=== PATIENT | male | born 1945 | race Caucasian/White ===

== ENCOUNTER 2017-03-27 14:58 | Outpatient (CLI) | payer MEDICARE ==
[2017-03-27 15:35] LABS: #Basophils 0.1 thou/uL (0.0-0.2); #Eosinphils 0.1 thou/uL (0.0-0.7); #Monocytes 0.4 thou/uL (0.11-0.59); %Basophils 0.7 % (0.0-1.0); %Eosinophils 0.6 % (0.0-10.0); %Lymphocytes 11.8 % (21.0-51.0); %Monocytes 4.4 % (0.0-10.0); %Neutrophils 82.6 % (42.0-75.0); Hemoglobin 13.3 g/dL (14.0-18.0); Mean Corpuscular HGB CONC 33.4 g/dL (32.0-36.0); Mean Corpuscular Hemoglobin 30.6 pg (27.0-31.0); Mean Corpuscular Volume 91.4 fl (80.0-94.0); Mean Platelet Volume 7.4 fL (7.4-10.4); Platelet Count 249 thou/uL (130-400); RBC Distribution Width 13.1 % (11.5-14.5); Red Blood Cell (RBC) Count 4.34 mill/uL (4.70-6.10); White Blood Cell (WBC) Count 8.5 thou/uL (4.8-10.8)
[2017-03-27 16:08] LABS: ALT (SGPT) 7 U/L (8-55); AST (SGOT) 25 U/L (5-34); Albumin 3.8 g/dL (3.4-4.8); Alkaline Phosphatase 73 U/L (40-150); Anion Gap 16 mmol/L (10-20); BUN (Urea Nitrogen) 16 mg/dL (8.4-25.7); Bilirubin, Total 0.3 mg/dL (0.2-1.2); Calc. Creatinine Clearance 0 mL/min (70-130); Calcium 8.9 mg/dL (7.8-10.44); Carbon Dioxide 20 mmol/L (23-31); Cardiac Risk 3.3 (Less than 4.5); Chloride 109 mmol/L (98-107); Cholesterol 126 mg/dl (< 200 Desired); Estimated GFR-MDRD 81; Globulin 3.4 g/dL (2.4-3.5); Glucose 88 mg/dL (83-110); HDL Cholesterol 38 mg/dL (>60 Neg Risk); LDL Cholesterol, Calculated 69 mg/dL; Potassium 4.6 mmol/L (3.5-5.1); Protein, Total 7.2 g/dL (5.8-8.1); Sodium 140 mmol/L (136-145); Triglycerides 97 mg/dL (Less than 150)
[2017-03-27 16:15] LABS: PSA-Asymptomatic (SCREENING) 0.14 ng/mL (0-4.0)
[2017-03-27 17:59] LABS: Hep C IgG Ab Non-Reactive (NonReactive); Hep C Index 0.21 S/CO (0-0.79)
== END 2017-03-27 14:59 | disposition home or self-care (01) ==
LOC: HPCALD 14:58
PROVIDERS: ATTEND Family Medicine
DX: Z12.5 Encounter for screening for malignant neoplasm of prostate (principal); Z11.59 Encounter for screening for other viral diseases; E78.5 Hyperlipidemia, unspecified; I10 Essential (primary) hypertension
CPT/HCPCS: 36415; 80053; 80061; 85025; 86803; G0103

== ENCOUNTER 2018-03-03 09:18 | Emergency (ER) | payer MEDICARE ==
[2018-03-03] MEDS ORDERED: HYDROcodone/Acetaminophen 10/325 mg Tablet ONE (09:38)
[2018-03-03] MEDS ORDERED: Ibuprofen 800 MG TAB ONE (09:39)
--- NOTE | 2018-03-03 19:37 | RAD ---
RIGHT HIP TWO VIEWS 03/03/18 No fracture or dislocation was seen. The joint space is minimally narrowed but the articular surfaces are smooth. The adjacent pubic ring appears intact. IMPRESSION: No acute findings. POS: HOME
--- NOTE | 2018-03-03 20:00 | RAD ---
LEFT HIP TWO VIEWS 03/03/18 No fracture, dislocation, or acute bony change was seen. There is minor joint space narrowing but the articular surfaces are smooth. The adjacent pubic ring appears intact. IMPRESSION: No acute findings. POS: HOME
--- NOTE | 2018-03-03 20:40 | RAD ---
LEFT KNEE FOUR VIEWS: 03/03/18 No fracture, dislocation, or joint space narrowing was seen. There is no large joint effusion. At mos t there could be a small one. The articular surfaces are smooth and the joint seems normal in width. IMPRESSION: No acute findings. POS: HOME
--- NOTE | 2018-03-03 21:06 | RAD ---
LEFT ANKLE THREE VIEWS 03/03/18 Comparison is made with a prior study dated 11/22/11. Old fractures of the distal tibial and fibular shafts are again seen and appears little different nola n before. No acute fractures were identified. Some arterial calcifications are evident. The ankle shane nt seems normal in width. IMPRESSION: Old changes, but no acute bony finding. POS: HOME
--- NOTE | 2018-03-03 21:28 | CT ---
CT OF THE LUMBAR SPINE 03/03/18 Comparison is made with prior study of 02/05/[address] [facility]. Axial slices were acquired, then coronal and sagittal reconstructions were done. The patient has had extensive back surgery with a vertebral body cage placed across L3 through L5. Th ere are rods extending from the low thoracic region down to S1. The pedicle screws at the S1 level garland ve considerable lucency around them but this is no different than the appearance in 2013. Various oth er rods and screws are seen entering from the side as well as various disc spacers. Overall, there has been minimal change in the appearance of the spine over time. I do not appreciate any new fractures. L2 is compressed but it was before and to about the same degree. The low thoracic, upper lumbar vertebrae appeared intact. There is a little further disc desiccation of the L5-S1 disc compared to before. At the L3-L4 level, there might be a slight central bulge of the disc but it jus t contacts the thecal sac. Fine detail is difficult due to the extensive postoperative changes and ar tifact from the patient's hardware. An incidental finding was a small right pleural effusion. IMPRESSION: 1. Extensive postoperative changes with no acute fractures identified. 2. Possible mild central bulge at the L3-L4 disc. 3. Small right pleural effusion; significance unknown. POS: HOME
--- NOTE | 2018-03-03 22:13 | RAD ---
LEFT FOOT THREE VIEWS 03/03/18 Comparison is made with an older study of the foot dated 11/22/11. There is considerable swelling on the dorsum of the forefoot today. None of the pictures provided wilberto w the Lisfranc joints adequately. On lateral view, one of the metatarsals seems placed a little more dorsally than usual. I cannot exclude a Lisfranc dislocation or injury. Further imaging should be don e on the patient's foot to check out this area further. On the prior films, these joints are easily d emonstrated and appeared normal, relatively speaking. There certainly has been old trauma here in the past. The bones are slightly osteopenic which masks some subtle injuries, but no gross acute fractur es were identified. IMPRESSION: Tremendous forefoot swelling with a normal Lisfranc articulation not demonstrated in the tarsometatar more joints. While this could just be due to positioning of the images, since all show some degree of abnormality here, I feel further imaging needs to be done to be certain. POS: HOME
== END 2018-03-03 12:01 | disposition home or self-care (01) ==
LOC: BURERS 09:18
DX: S99.922A Unspecified injury of left foot, initial encounter (principal); S80.812D Abrasion, left lower leg, subsequent encounter; S80.811D Abrasion, right lower leg, subsequent encounter; I10 Essential (primary) hypertension; F41.9 Anxiety disorder, unspecified; V89.2XXA Person injured in unspecified motor-vehicle accident, traffic, initial encounter
CPT/HCPCS: 72131